=== PATIENT | male | born 1975 | race Caucasian/White ===

== ENCOUNTER 2022-06-12 21:31 | Emergency (ER) | payer OTHER, SELFPAY ==
[2022-06-12 21:32] VITALS: BP 140/93; PULSE 100; RESP 18; TEMP 36.9; O2SAT 96; BMI 30.6
--- NOTE | 2022-06-12 21:40 | EDS_ITS ---
HPI History of Present Illness Chief Complaint: Lower Extremity Injury Narrative Narrative: 47-year-old male with right foot pain. He states he dropped a log on it today while he was cutting wood. He does not know exactly how heavy it was. When he said he was cutting a blood at about waist height and he describes the log is about 1 foot wide and 3 feet long. It landed on his right foot and most of the pain is in the right great toe. He states he stopped working today. He has no lacerations but notes bruising to the right foot. He is ambulatory. He took ibuprofen today which helped a little bit. [facility] Medical History (Updated 06/12/22 @ 23:[address] Jakob Daugherty DO) Herniated disc Home Medications hydrocodone-acetaminophen 5-325mg 5mg-325mg 1 tab PO Q6H PRN pain 3 days #12 TABLETS 06/12/22 [Rx Last Taken Unknown] naproxen 500 mg tablet (Naprosyn) 500 mg PO BID PRN pain #20 tabs 06/12/22 [Rx Last Taken Unknown] Allergy/AdvReac Type Severity Reaction Status Date / Time No Known Allergies Allergy Verified 06/12/22 21:32 Social History Smoking Status: Current every day smoker tobacco type: cigarettes ROS ROS ED Constitutional Constitutional ED: Denies chills or fever(s) Eyes Eyes: Denies change in vision or diplopia ENT ENT ED: Denies rhinorrhea or sore throat Cardiovascular Cardiovascular: Denies chest pain or palpitations Respiratory/Chest Respiratory/Chest: Denies cough or dyspnea Gastrointestinal Gastrointestinal: Denies abdominal pain, constipation or diarrhea Genitourinary Genitourinary ED: Denies dysuria or hematuria Musculoskeletal Musculoskeletal: Reports other Details: Right foot pain Integumentary Reports other Details: Bruising to right foot EXAM Physical Exam Const Vital Signs: 06/12/22 21:32 Temperature 98.5 F Temperature Source Temporal Pulse Rate 100 Respiratory Rate 18 Blood Pressure 140/93 H Blood Pressure Mean 108 Pulse Ox 96 Oxygen Delivery Method Room Air Positive well nourished General Appearance ED: NAD HEENT Reports moist mucous membranes Resp normal respiratory effort Cardio regular rate and regular rhythm Extremity Extremity Narrative: Right twister frame tender to palpation over the first and second metatarsals and into the great toe. There is some edema and bruising in this region. The toenails appear to be intact. No lacerations. No obvious deformity. Neuro oriented x3 Sensorium / Orientation: alert Motor Exam: strength 5/5 throughout Psych mental status grossly normal Skin Skin Narrative: As described above MDM MDM MDM Narrative Medical decision making narrative: Patient with right foot pain after a log fell on it. He describes it is quite heavy and probably of foot by 3 feet in size. Fell on his foot from waist high. Patient ambulatory but does have pain. Bruising noted over the great toe and into the distal foot. Neurovascular intact. Differential at this point is foot contusion versus fracture. Patient already took ibuprofen. X-rays ordered of the right foot. Patient found to have comminuted fractures of the distal phalanx of the great toe which extends into the articular surface on my interpretation. Radiologist services and agrees. Patient did request more for pain he was given Toradol and Deal. Patient was given a prescription for this for home. He is placed in a postop shoe. Recommended that he be nonweightbearing. He is given crutches. He is given follow-up with podiatry. Return precautions discussed. Impression: 1. Comminuted right great toe fracture Radiography Diagnostic Testing: Clinical Impression(s) from Imaging Studies Foot X-Ray 06/12/22 21:48 IMPRESSION: 1. Comminuted fractures involving the distal phalanx the great toe with fracture planes extending into the articular surface at the interphalangeal joint. No angulation or displacement. 2. No other fractures noted. 3. No radiopaque foreign bodies noted. Electronically Signed: Pierre Ashraf MD at 22:48 EDT , Discharge Plan Triage Chief Complaint: Lower Extremity Injury Other Complaint: Wound ED Provider: Jakob Daugherty Dx/Rx/DC Orders Instructions: ED Fracture, Toe, Closed Prescriptions: New naproxen [Naprosyn] 500 mg tablet 500 mg PO BID PRN (Reason: pain) Qty: 20 0RF hydrocodone-acetaminophen 5-325 mg tablet 1 tab PO Q6H PRN (Reason: pain) 3 Days Qty: 12 0RF Primary Care Provider: Bernard Haskins Referrals: Nathan Grayson DPM [Med Staff - Active Staff] - 3-5 Days Bernard Haskins DO [Primary Care Provider] - Disposition Disposition: Home, Self Care
--- NOTE | 2022-06-12 21:48 | RAD_ITS ---
INDICATION: foot pain great toe EXAMINATION/TECHNIQUE: X-RAY - RIGHT XR Foot Min 3 Views 3 VIEWS COMPARISON: None. FINDINGS: SOFT TISSUES: No soft tissue swelling or gas. No radiopaque foreign body. BONES/JOINTS: There is a comminuted fracture involving the distal phalanx the great toe with fracture planes extending into the interphalangeal joint. No displacement. No angulation. Remaining bony elements and joint spaces have normal appearance.. RAD/Foot min 3 Views IMPRESSION: 1. Comminuted fractures involving the distal phalanx the great toe with fracture planes extending into the articular surface at the interphalangeal joint. No angulation or displacement. 2. No other fractures noted. 3. No radiopaque foreign bodies noted. Electronically Signed: Pierre Ashraf MD at 22:48 EDT ,
[2022-06-12] MEDS: Ketorolac 15 MG/ML Vial IM (23:20)
[2022-06-12] MEDS: HYDROcodone Bitartrate/Apap 5/325 Tablet PO (23:20)
== END 2022-06-12 23:50 | disposition home or self-care (01) ==
PROVIDERS: Emergency Provider Student in an Organized Health Care Education/Training Program; PCP Family Medicine; Visit Provider Student in an Organized Health Care Education/Training Program
DX: S92.401A Displaced unspecified fracture of right great toe, initial encounter for closed fracture (principal); F17.210 Nicotine dependence, cigarettes, uncomplicated; X58.XXXA Exposure to other specified factors, initial encounter
CPT/HCPCS: 73630; 96372; 99284